=== PATIENT | female | born 1985 | race Caucasian/White ===

== ENCOUNTER 2019-01-23 08:55 | Inpatient (IN) | payer OTHER ==
[~2019-01-23] VITALS: Ht 162.6 cm; Wt 87.7 kg
[~2019-01-23 08:55] MED LIST: HYDR-3240 PO; IBUP-1222 PO; PREN1TAB60 PO
[2019-01-23] MEDS ORDERED: NEWBORN KIT ONE (09:08)
[2019-01-23] MEDS ORDERED: OXYTOCIN 30U/ 0.9% NaCL 500ML 500 ML IV ONE (09:14)
[2019-01-23] MEDS ORDERED: TERBUTALINE 1 MG/ML, 1ML SQ PRN (09:30)
[2019-01-23] MEDS ORDERED: TERBUTALINE 1 MG/ML, 1ML IVPush PRN (09:30)
[2019-01-23 09:51] VITALS: BP 122/66
[2019-01-23 09:55] LABS: BASOPHILS # (AUTO) 0.04 x10^3/uL (0-0.1); BASOPHILS % (AUTO) 0 % (0-1); EOSINOPHILS # (AUTO) 0.25 x10^3/uL (0-0.4); EOSINOPHILS % (AUTO) 2 % (1-7); LYMPHOCYTES # (AUTO) 1.92 x10^3/uL (1-3.4); LYMPHOCYTES % (AUTO) 13 % (22-44); MD NO; MEAN CORPUSCULAR HEMOGLOBIN 32.1 pg (27.0-34.8); MEAN CORPUSCULAR HGB CONC 33.4 g/dL (32.4-35.8); MEAN CORPUSCULAR VOLUME 96.3 fL (80-100); MEAN PLATELET VOLUME 8.1 fL (7.4-10.4); MONOCYTES # (AUTO) 0.54 x10^3/uL (0.2-0.8); MONOCYTES % (AUTO) 4 % (2-9); NEUTROPHILS # (AUTO) 11.82 x10^3/uL (1.8-6.8); NEUTROPHILS % (AUTO) 81 % (42-75); PLATELET COUNT 282 x10^3/uL (130-400); RED BLOOD COUNT 4.15 x10^6/uL (3.82-5.3); RED CELL DISTRIBUTION WIDTH 13.4 % (9.6-15.2)
[2019-01-23] MEDS ORDERED: OXYTOCIN 10 UNITS/ML, 1ML IM PRN (10:00)
[2019-01-23] MEDS ORDERED: RHOGAM FROM BLOOD BANK 1 NOTE EA IM/IV ONE (10:00)
[2019-01-23] MEDS ORDERED: MAGNESIUM HYDROXIDE 8%, 30ML UDC PO PRN (10:00)
[2019-01-23] MEDS ORDERED: DOCUSATE 100 MG CAPSULE PO PRN (10:00)
[2019-01-23] MEDS ORDERED: ACETAMINOPHEN 325 MG TABLET PO PRN ×2 (10:00)
[2019-01-23] MEDS ORDERED: MEASLES,MUMPS&RUBELLA VACC/PF 0.5 ML SQ-VACC PRN (10:00)
[2019-01-23] MEDS ORDERED: HYDROcodone/APAP 5/325 TABLET PO PRN ×2 (10:00)
[2019-01-23] MEDS ORDERED: PLEASE ENTER HEIGHT AND WEIGHT MC SCH (10:01)
[2019-01-23] MEDS ORDERED: MISOPROSTOL 200 MCG TABLET ONE (10:18)
[2019-01-23] MEDS ORDERED: LIDOCAINE 1%, 20ML ONE (10:18)
[2019-01-23] MEDS ORDERED: IBUPROFEN 600 MG TABLET ONE (10:26)
[2019-01-23] MEDS: IBUPROFEN 600 MG TABLET PO PRN ×2 (10:27→18:56)
[2019-01-23] MEDS ORDERED: MISOPROSTOL 200 MCG TABLET PR ONE (10:30)
[2019-01-23 11:20] VITALS: BP 118/58
[2019-01-23 16:40] VITALS: BP 110/60
[2019-01-23 19:45] VITALS: BP 110/72
[2019-01-23 20:20] LABS: BASOPHILS # (AUTO) 0.01 x10^3/uL (0-0.1); BASOPHILS % (AUTO) 0 % (0-1); EOSINOPHILS # (AUTO) 0.06 x10^3/uL (0-0.4); EOSINOPHILS % (AUTO) 0 % (1-7); LYMPHOCYTES % (AUTO) 16 % (22-44); MD NO; MEAN CORPUSCULAR HEMOGLOBIN 31.5 pg (27.0-34.8); MEAN CORPUSCULAR HGB CONC 33.3 g/dL (32.4-35.8); MEAN CORPUSCULAR VOLUME 94.4 fL (80-100); MEAN PLATELET VOLUME 7.7 fL (7.4-10.4); MONOCYTES # (AUTO) 0.79 x10^3/uL (0.2-0.8); MONOCYTES % (AUTO) 6 % (2-9); NEUTROPHILS # (AUTO) 10.35 x10^3/uL (1.8-6.8); NEUTROPHILS % (AUTO) 78 % (42-75); PLATELET COUNT 280 x10^3/uL (130-400); RED BLOOD COUNT 3.86 x10^6/uL (3.82-5.3); RED CELL DISTRIBUTION WIDTH 12.8 % (9.6-15.2)
[2019-01-24 00:05] VITALS: BP 105/54
[2019-01-24 05:00] VITALS: BP 109/64
[2019-01-24 07:55] VITALS: BP 98/61
[2019-01-24] MEDS ORDERED: PRENATAL VIT/IRON/FA 1 EACH TABLET PO SCH (09:00)
[2019-01-24] MEDS: IBUPROFEN 600 MG TABLET PO PRN (09:14)
== END 2019-01-24 14:18 | disposition home or self-care (01) | DRG 807 ==
LOC: LDOP 08:55 → EDIP 09:02 → LDIP 09:11 → 2NW 11:41
PROVIDERS: ADMIT Obstetrics & Gynecology; ATTEND Obstetrics & Gynecology
PROC: 10E0XZZ Delivery of Products of Conception, External Approach (ICD-10-PCS; principal; 2019-01-23)
PROC: 0KQM0ZZ Repair Perineum Muscle, Open Approach (ICD-10-PCS; 2019-01-23)
PROC: 10907ZC Drainage of Amniotic Fluid, Therapeutic from Products of Conception, Via Natural or Artificial Opening (ICD-10-PCS; 2019-01-23)
DX: O62.3 Precipitate labor (principal); Z37.0 Single live birth; O70.1 Second degree perineal laceration during delivery; Z3A.39 39 weeks gestation of pregnancy
CPT/HCPCS: 36415; 85025; 86850; 86900; G0378